=== PATIENT | female | born 1985 | race Caucasian/White ===

== ENCOUNTER 2020-12-01 19:50 | Emergency (ER) | payer OTHER ==
[~2020-12-01] VITALS: Ht 157.5 cm; Wt 63.5 kg
[2020-12-01 20:06] VITALS: BP 131/75
--- NOTE | 2020-12-01 20:10 | NUR ---
TO LOBBY A/W BED AMBULATORY
--- NOTE | 2020-12-01 23:29 | NUR ---
PT AMBULATED TO BED #3
--- NOTE | 2020-12-01 23:30 | NUR ---
PT. IS A 35 Y/O FEMALE THAT CAME INTO ED WITH C/O OF ABSCESS. PT. STATES SHE NOTICED "A BALL ON HER VAGINA AROUND SUNDAY MORNING AND IT PROGRESSIVELY GOT BIGGER." PT. STATES THAT "IT IS ON THE INSIDE OF HER VAGINA AND NAUSEA STARTED TODAY." PT. RATES PAIN AT 9/10 ON THE PAIN SCALE AT THIS TIME AND DESCRIBES THE PAIN LOCALIZED. DENIES V/D/FEVER, ADMITS TO NAUSEA. AAOX4;VSS PMH: DENIES ALLERGIES: NKA
--- NOTE | 2020-12-02 00:05 | NUR ---
ERMD FLAMMIA AT BEDSIDE
[2020-12-02] MEDS: LIDOCAINE MPF 1% 10 MG/ML VIAL INJ ONE (00:30)
[2020-12-02] MEDS ORDERED: CEPH-588 PO (01:17)
[2020-12-02 01:23] VITALS: BP 128/70
== END 2020-12-02 01:23 | disposition home or self-care (01) ==
LOC: MED 19:50
DX: N75.1 Abscess of Bartholin's gland (principal); Z79.899 Other long term (current) drug therapy
CPT/HCPCS: 56420; 99284; J2001

== ENCOUNTER 2023-05-27 07:47 | Emergency (ER) | payer OTHER ==
[~2023-05-27] VITALS: Ht 157.5 cm; Wt 68.5 kg
[~2023-05-27 07:47] MED LIST: CEPH-588 PO
[2023-05-27 07:55] VITALS: BP 152/67; PULSE 84; RESP 18; TEMP 97.6; O2SAT 96
[2023-05-27] MEDS: BENZOCAINE 20% 57 GM CAN MC ONE (08:17)
[2023-05-27 08:55] VITALS: BP 152/67; PULSE 84; RESP 18; TEMP 97.6; O2SAT 96
== END 2023-05-27 08:55 | disposition home or self-care (01) ==
LOC: MED 07:47
DX: O26.892 Other specified pregnancy related conditions, second trimester (principal); K08.89 Other specified disorders of teeth and supporting structures; R51.9 Headache, unspecified; Z86.39 Personal history of other endocrine, nutritional and metabolic disease; Z79.899 Other long term (current) drug therapy
CPT/HCPCS: 99282